=== PATIENT | male | born 1980 | race Caucasian/White ===

== ENCOUNTER 2021-12-18 17:38 | Emergency (ER) | payer OTHER ==
[~2021-12-18] VITALS: Ht 165.1 cm; Wt 85.0 kg
[2021-12-18] MEDS ORDERED: HYDROCODONE/ACETAMINOPHEN 5/325MG TABLET PO STA (17:55)
[2021-12-18 18:45] VITALS: BP 146/87
[2021-12-18] MEDS ORDERED: TETANUS, DIPHTHERIA, PERTUSSIS VAC/PF 0.5ML (>10YR OLD) IM ONE (18:45)
[2021-12-18] MEDS ORDERED: LIDOCAINE HCL/EPINEPHRINE 1%-EPI 1:100,000 20 ML VIAL INFIL ONE (18:45)
[2021-12-18] MEDS ORDERED: IBUPROFEN 400MG TABLET PO ONE (18:45)
[2021-12-18] MEDS ORDERED: TOPUD PO (19:46)
[2021-12-18] MEDS ORDERED: IBUP-2028 MT (19:46)
== END 2021-12-18 20:29 | disposition home or self-care (01) ==
LOC: ER 17:38
DX: S61.412A Laceration without foreign body of left hand, initial encounter (principal); E11.9 Type 2 diabetes mellitus without complications; W26.0XXA Contact with knife, initial encounter; Y93.89 Activity, other specified; Y92.89 Other specified places as the place of occurrence of the external cause; Y99.8 Other external cause status
CPT/HCPCS: 12001; 73130; 90471; 90715; 99283; J3490

== ENCOUNTER 2021-12-26 06:54 | Emergency (ER) | payer OTHER ==
[~2021-12-26] VITALS: Ht 165.1 cm; Wt 81.5 kg
[~2021-12-26 06:54] MED LIST: IBUP-2028 MT; TOPUD PO
[2021-12-26 07:10] VITALS: BP 112/87
[2021-12-26] MEDS ORDERED: CEPH500T MT (07:57)
== END 2021-12-26 08:07 | disposition home or self-care (01) ==
LOC: ER 06:54
DX: L03.114 Cellulitis of left upper limb (principal); E11.9 Type 2 diabetes mellitus without complications
CPT/HCPCS: 99283